=== PATIENT | female | born 1965 | race Caucasian/White ===

== ENCOUNTER 2017-09-13 08:05 | Day surgery (SDC) | payer OTHER ==
[~2017-09-13 08:05] MED LIST: ALDACTONE100 MG PO; CABERGOLINE0.5 MG PO; CRESTOR5 MG PO; PROGESTERONE200 MG PO; SYNTHROID75 MCG PO
== END 2017-09-13 15:35 | disposition home or self-care (01) ==
LOC: CIR.AMB 08:05
DX: C7A.026 Malignant carcinoid tumor of the rectum (principal)